=== PATIENT | male | born 1965 | race Caucasian/White ===

== ENCOUNTER 2019-01-21 08:09 | Day surgery (SDC) | payer OTHER ==
[2019-01-15 14:49] VITALS: BMI 25.1
[2019-01-21] MEDS ORDERED: PROPOFOL 20 ML ONE ×2 (08:41)
[2019-01-21 10:55] VITALS: PULSE 70; TEMP 98.1
[2019-01-21 10:57] VITALS: BP 122/85
--- NOTE | 2019-01-23 17:49 | PATH ---
Surgical Pathology Report Patient Name: JESSICA RODRIGUEZ [facility]. Rec. #: [id number] /Age/Gender: 1965 (Age: 53) / M Account: [id number] Location: [facility] Taken: 01/21/2019 Received: 01/21/2019 Reported: 01/23/2019 Physicians: Kendall Daniel M.D. Specimen(s) Received A: BX SECOND PORTION DUODENUM B: BX GASTRIC ANTRUM Clinical History GERD Postoperative diagnosis: mild gastritis Final Diagnosis A. SECOND PORTION DUODENUM, BIOPSY: DUODENUM MUCOSA WITH NO SIGNIFICANT PATHOLOGIC CHANGES. NO HISTOLOGIC EVIDENCE OF CELIAC DISEASE. B. GASTRIC ANTRUM, BIOPSY: GASTRIC MUCOSA WITH REACTIVE GASTROPATHY. IMMUNOSTAIN FOR H. PYLORI IS NEGATIVE. NEGATIVE FOR INTESTINAL METAPLASIA. Electronically Signed Minh Goodson M.D. Gross Description A. Received in formalin, labeled "biopsy second portion of duodenum" are 2 [place], irregular portions of soft tissue measuring 0.3 and 0.5 cm. in greatest dimension. The specimens are submitted in toto in one cassette. B. Received in formalin, labeled "biopsy gastric antrum" are 2 [place], irregular portions of soft tissue averaging 0.4 cm. in greatest dimension. The specimens are submitted in toto in one cassette. 01/22/2019 [facility]01/22/2019
== END 2019-01-21 10:25 | disposition home or self-care (01) ==
LOC: FASU-ENDO 08:09
PROVIDERS: ATTEND Internal Medicine Gastroenterology
PROC: 0DB98ZX Excision of Duodenum, Via Natural or Artificial Opening Endoscopic, Diagnostic (ICD-10-PCS; principal; 2019-01-21 09:38)
PROC: 0DB68ZX Excision of Stomach, Via Natural or Artificial Opening Endoscopic, Diagnostic (ICD-10-PCS; 2019-01-21 09:38)
DX: K31.9 Disease of stomach and duodenum, unspecified (principal); R10.13 Epigastric pain
CPT/HCPCS: 88305-TC; 88342-TC